=== PATIENT | male | born 1990 | race Caucasian/White ===

== ENCOUNTER 2019-10-30 09:03 | Emergency (ER) | payer MEDICAID ==
[~2019-10-30] VITALS: Ht 177.8 cm; Wt 92.1 kg
[2019-10-30 09:19] VITALS: Ht 177.8 cm; Wt 92.1 kg
[2019-10-30 11:05] VITALS: BP 113/76
== END 2019-10-30 11:06 | disposition home or self-care (01) ==
LOC: ED 09:03
DX: U07.1 COVID-19 (principal); J45.909 Unspecified asthma, uncomplicated; Z13.9 Encounter for screening, unspecified

== ENCOUNTER 2020-06-30 21:50 | Emergency (ER) | payer BC ==
[~2020-06-30] VITALS: Ht 180.3 cm; Wt 88.0 kg
[2020-06-30 22:16] VITALS: Ht 180.3 cm; Wt 88.0 kg
[2020-06-30] MEDS ORDERED: NAPROXEN375 MG PO (23:14)
[2020-06-30 23:54] VITALS: BP 138/72
== END 2020-06-30 23:54 | disposition home or self-care (01) ==
LOC: ED 21:50
DX: S93.401A Sprain of unspecified ligament of right ankle, initial encounter (principal); J45.909 Unspecified asthma, uncomplicated; V00.131A Fall from skateboard, initial encounter; Y93.51 Activity, roller skating (inline) and skateboarding; Y92.89 Other specified places as the place of occurrence of the external cause; Y99.8 Other external cause status